=== PATIENT | female | born 1970 | race Caucasian/White ===

== ENCOUNTER 2023-02-13 09:04 | Emergency (ER) | payer BC, SELFPAY ==
[2023-02-13 09:27] VITALS: BP 119/71; PULSE 117; RESP 18; TEMP 37.3; O2SAT 97
--- NOTE | 2023-02-13 09:34 | ED.URI ---
HPI - URI/Sore Throat General Chief Complaint: Upper Respiratory Infection Stated Complaint: chest congestion Time Seen by Provider: 02/13/23 09:34 Source: patient, RN notes reviewed and old records reviewed Mode of arrival: ambulatory Limitations: no limitations History of Present Illness HPI Narrative: 52-year-old female presents to the [facility] with chest congestion, rattling. Patient states she started with sinus issues about 8 days ago. Did take Mucinex 1 time and states that she started. Denies any chest pain or shortness of breath. DENIES FEVERS Patient states that she was cleaning her oven a day or 2 before symptoms started. States that she did get a good breath oven off. Reports having COVID test Wednesday, 4 days ago, reports negative Onset (ago): day(s) (8) Related Data Home Medications Medication Instructions Recorded Confirmed [id number] 8 mg-folic 400 1 tablet PO DAILY 01/23/22 02/13/23 mcg-K 50 mcg-lutein 300 mcg tablet (Centrum Silver Women) levonorgestrel 21 mcg/24 hours (8 See Rx Instructions .Route .COMPLEX 02/13/23 02/13/23 yrs) 52 mg intrauterine device (Mirena) Allergies Allergy/AdvReac Type Severity Reaction Status Date / Time No Known Allergies Allergy Verified 02/13/23 09:33 Review of Systems Review of Systems: All systems reviewed & are unremarkable except as noted in HPI and below Constitutional: Constitutional: Reports no additional constitutional complaints Eyes: Eyes: Reports no additional eye complaints ENT: Reports as per HPI Cardiovascular: Cardiovascular: Reports no additional cardiovascular complaints, Denies chest pain and Denies dyspnea Respiratory: Respiratory: Reports as per HPI, Reports chest congestion, Reports cough, Denies pain with cough, Denies dyspnea, Denies stridor and Denies wheezing Gastrointestinal: Gastrointestinal: Reports no additional gastrointestinal complaints, Denies abdominal pain, Denies nausea and Denies vomiting Musculoskeletal: Musculoskeletal: Reports no additional musculoskeletal complaints Integumentary/Breasts: Skin/Breast: Reports system reviewed and no additional complaints, except as docu Neurologic: Reports system reviewed and no additional complaints, except as documented Psychiatric: Psychiatric: Reports no additional psychiatric complaints Allergic/Immunologic: Allergic/Immunologic: Reports no additional allergic/immunologic complaints PMFSH Past Medical History Medical History Abnormal blood chemistry Encounter for wellness examination in adult GERD (gastroesophageal reflux disease) aggravated by late night eating, overeating, alcohol Periodic health assessment, general screening, adult Pre-diabetes Raynaud phenomenon Surgical History Surgical History History of foot surgery [place] teeth extracted Family History Family History Mother No problems noted. Father No problems noted. Social History Social History Smoking status: Never smoker Alcohol intake: current Drinks per week: 3 Substance use: never Substance use type: does not use Living arrangements: with family Occupation/Education: occupation Gender identity (if verbalized by the patient): Female Comments At the time of my signature, I reviewed and agree with the nursing past medical, surgical, social, and family history. There is no relevant family history pertinent to the patient complaint. Exam Const: General: cooperative, healthy appearing, comfortable, no acute distress, well developed, alert and well nourished Nutritional Appearance: well nourished Orientation/consciousness: patient oriented x3 Limitations: no limitations HENMT: Head: normal to inspection Ears: hearing grossly abner
== END 2023-02-13 09:51 | disposition home or self-care (01) ==
PROVIDERS: Emergency Provider Nurse Practitioner; PCP Physician Assistant Medical
DX: J40 Bronchitis, not specified as acute or chronic (principal); K21.9 Gastro-esophageal reflux disease without esophagitis; R73.03 Prediabetes; I73.00 Raynaud's syndrome without gangrene
CPT/HCPCS: 99213; G0463